=== PATIENT | male | born 2000 | race Caucasian/White ===

== ENCOUNTER 2020-05-05 23:32 | Emergency (ER) | payer OTHER ==
[~2020-05-05 23:32] MED LIST: FLONASE 0.05% N16 GM; SUDAFED 60 MG T60 MG PO; ZYRTEC10 MG PO
[2020-05-06 01:17] LABS: HEMOGLOBIN 15.8 gm/dl (14.0-17.5); RED BLOOD COUNT 5.12 M/UL (4.20-5.50); WHITE BLOOD COUNT 4.6 K/UL (4.5-11.0)
[2020-05-06 01:33] LABS: BUN/CREATININE RATIO 23 (0-10)
== END 2020-05-06 02:56 | disposition home or self-care (01) ==
LOC: ER1 23:32
PROVIDERS: Emergency Medicine
DX: R07.9 Chest pain, unspecified (principal); R06.02 Shortness of breath; I45.10 Unspecified right bundle-branch block
CPT/HCPCS: 36415; 71046; 80053; 82550; 82553; 83874; 84484; 85025; 85379; 93005; 99285

== ENCOUNTER 2020-05-28 16:39 | Emergency (ER) | payer OTHER | END 2020-05-28 21:58 | disposition home or self-care (01) | LOC: ER1 16:39 | DX: R07.2 Precordial pain (principal); R51.9 Headache, unspecified; Z88.0 Allergy status to penicillin; F17.290 Nicotine dependence, other tobacco product, uncomplicated; Z79.899 Other long term (current) drug therapy; Z79.82 Long term (current) use of aspirin | CPT/HCPCS: 71045; 93005; 99285 ==

== ENCOUNTER → 2021-05-01 | Outpatient (CLI) | payer OTHER | LOC: EXRD 14:00 | DX: N50.89 Other specified disorders of the male genital organs (principal); N50.3 Cyst of epididymis | CPT/HCPCS: 76870 ==